=== PATIENT | male | born 1965 | race Caucasian/White ===

== ENCOUNTER 2017-01-17 09:18 | Emergency (ER) | payer OTHER ==
[~2017-01-17] VITALS: Ht 170.2 cm; Wt 104.6 kg
[2017-01-17 09:22] VITALS: TEMP 36.8; Ht 170.2 cm; Wt 104.6 kg
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
[2017-01-17] MEDS ORDERED: LOSA1TAB PO (11:12)
[2017-01-17] MEDS ORDERED: SITA50TA5 PO (11:12)
[2017-01-17] MEDS ORDERED: METO25TA3 PO (11:12)
[2017-01-17] MEDS ORDERED: CINN1CAP2 PO (11:12)
[2017-01-17] MEDS ORDERED: CANA1TAB PO (11:12)
--- NOTE | 2017-01-17 11:59 | DIAGNOSTIC IMAGING REPORT ---
MRI LUMBAR SPINE W/O CONTRAST CLINICAL HISTORY: Low back pain with left leg radiculopathy TECHNIQUE: Sagittal and axial T1, T2 and STIR images were obtained. COMPARISON STUDY: No previous studies for comparison. OBSERVATIONS: There is an L2 vertebral body focal fatty rests/meningiomas. There are no areas of marrow replacement to indicate metastatic disease. L1-2: No disc protrusions or extrusions. No evidence of spinal canal or neural foraminal compromise. L2-3: No disc protrusions or extrusions. No evidence of spinal canal or neural foraminal compromise. L3-4: No disc protrusions or extrusions. No evidence of spinal canal or neural foraminal compromise. L4-5: There is a minimal circumferential disc bulge. There is no significant spinal or foraminal stenosis. L5-S1: No disc protrusions or extrusions. No evidence of spinal canal or neural foraminal compromise. The conus medullaris and cauda equina appear normal. IMPRESSION: 1. Mild circumferential disc bulge at the L4-5 level 2. No focal disc herniations identified 3. No evidence of significant spinal or foraminal stenosis Electronically signed by: Marv Anthony M.D. 01/17/2017 11:58 AM Dictated Date/Time: 01/17/2017 11:55 AM
[2017-01-17] MEDS ORDERED: IBUPROFEN 600 MG TAB PO STA (12:23)
[2017-01-17] MEDS ORDERED: IBUP-1427 PO (12:28)
[2017-01-17 12:53] VITALS: BP 135/88; PULSE 112; O2SAT 99
== END 2017-01-17 12:54 | disposition home or self-care (01) ==
LOC: C.EDB 09:20 → C.EDC 12:54
DX: M54.5 Low back pain (principal); V89.2XXD Person injured in unspecified motor-vehicle accident, traffic, subsequent encounter; E11.9 Type 2 diabetes mellitus without complications; I10 Essential (primary) hypertension; Z79.899 Other long term (current) drug therapy; R20.0 Anesthesia of skin